=== PATIENT | male | born 1955 | race Hispanic/Latino ===

== ENCOUNTER 2016-08-29 20:02 | Emergency (ER) | payer OTHER, BC ==
[~2016-08-29 20:02] MED LIST: Sodium Chloride 0.9% 1,000 ML BAG ONE
[2016-08-29] MEDS ORDERED: Nitroglycerin 0.4 MG TAB 1 EACH ONE ×2 (20:09→20:21)
[2016-08-29] MEDS ORDERED: Aspirin 325 MG TAB ONE (20:10)
[2016-08-29 20:44] LABS: ALT (SGPT) 17 U/L (0-55); AST (SGOT) 16 U/L (5-34); Albumin 3.7 g/dL (3.5-5.0); Alkaline Phosphatase 146 U/L (40-150); Anion Gap 16 mmol/L (10-20); BUN (Urea Nitrogen) 14 mg/dL (8.4-25.7); Bilirubin, Total 0.5 mg/dL (0.2-1.2); Calc. Creatinine Clearance 0 mL/min (70-130); Calcium 8.9 mg/dL (7.8-10.44); Carbon Dioxide 22 mmol/L (22-29); Chloride 109 mmol/L (98-107); Estimated GFR-MDRD Greater than 90; Globulin 2.6 g/dL (2.4-3.5); Glucose 122 mg/dL (70-105); Potassium 3.9 mmol/L (3.5-5.1); Protein, Total 6.3 g/dL (6.0-8.3); Sodium 143 mmol/L (136-145)
[2016-08-29 20:51] LABS: CKMB 0.6 ng/mL (0-6.6); Troponin I Less than 0.010 ng/mL (< 0.028)
--- NOTE | 2016-08-29 20:58 | RAD ---
SINGLE VIEW OF THE CHEST 08/29/16 INDICATION: Chest pain. IMPRESSION: Mild cardiomegaly. No definite acute cardiopulmonary abnormality demonstrated. COMMENTS: No comparisons available. Pulmonary vasculature is within normal limits. No pleural effusion or pneu mothorax is evident. No acute osseous abnormality is evident. There is partial visualization of an A CDF plate involving the lower cervical spine. POS: [facility]
[2016-08-29 21:25] LABS: #Basophils 0.1 thou/uL (0.0-0.2); #Eosinphils 0.2 thou/uL (0.0-0.7); #Lymphocytes 2.2 thou/uL (1.20-3.40); #Monocytes 0.7 thou/uL (0.11-0.59); #Neutrophils 3.2 thou/uL (1.40-6.50); %Basophils 1.2 % (0.0-1.0); %Eosinophils 3.1 % (0.0-10.0); %Lymphocytes 34.7 % (21.0-51.0); %Monocytes 10.4 % (0.0-10.0); %Neutrophils 50.5 % (42.0-75.0); Hemoglobin 14.4 g/dL (14.0-18.0); Mean Corpuscular HGB CONC 34.8 g/dL (32.0-36.0); Mean Corpuscular Hemoglobin 30.7 pg (27.0-31.0); Mean Corpuscular Volume 88.2 fl (80.0-94.0); Mean Platelet Volume 7.5 fL (7.4-10.4); Platelet Count 219 thou/uL (130-400); RBC Distribution Width 11.9 % (11.5-14.5); Red Blood Cell (RBC) Count 4.69 mill/uL (4.70-6.10); White Blood Cell (WBC) Count 6.3 thou/uL (4.8-10.8)
--- NOTE | 2016-08-29 21:42 | PICIS ---
[facility] EMERGENCY RECORD TRIAGE ([facility] Aug 29, 2016 20:12 MDEB) PATIENT: NAME: Walt Bhatt, AGE: 60, GENDER: male, : Wed1955, TIME OF GREET: Sat Aug 29, 2016 20:02, PREFERRED LANGUAGE: [place], RACE: or , ETHNICITY: or , ECODE BILLING MAP: [facility], SSN: [id number], Zip Code: [address], KG WEIGHT: 86.18, PHONE: , , , PERSON ID: [id number], PCP: UNKNOWN. ([facility] Aug 29, 2016 20:12 MDEB) TRIAGE NOTES: CHEST PRESSURE, SOB. ([facility] Aug 29, 2016 20:12 MDEB) COMPLAINT: SOB. ([facility] Aug 29, 2016 20:12 MDEB) ADMISSION: URGENCY: 3 Urgent, ADMISSION SOURCE: Home, TRANSPORT: Walk-in, BED: TRIAGE. ([facility] Aug 29, 2016 20:12 MDEB) PAIN: Patient complains of pain described as, aching, on a scale 0-10 patient rates pain as 5. ([facility] Aug 29, 2016 20:12 MDEB) PROVIDERS: TRIAGE NURSE: Haydee Lares RN. ([facility] Aug 29, 2016 20:12 MDEB) VITAL SIGNS: BP 126/65, Pulse 66, Resp 20, Temp 98.3, (Tympanic), Pain 5, O2 Sat 97, Time 08/29/2016 20:10. (20:10 MDEB) KNOWN ALLERGIES No Known Allergies (Unconfirmed) No Known Drug Allergies CURRENT MEDICATIONS No recorded medications VITAL SIGNS VITAL SIGNS: BP: 126/65, Pulse: 66, Resp: 20, Temp: 98.3 (Tympanic), Pain: 5, O2 sat: 97, Time: 08/29/2016 20:10. (20:10 MDEB) BP: 119/61, Pulse: 76, Resp: 18, Temp: 98.3 (Tympanic), Pain: 0, O2 sat: 100 on Room Air, Time: 08/29/2016 21:30. (21:30 JDEA) BP: 102/47, Pulse: 62, Resp: 20, Temp: 97.8, Pain: 0, O2 sat: 98% on RA, Time: 08/29/2016 21:50. (21:50 AGAN) NURSING ASSESSMENT: CARDIOVASCULAR (20:46 JDEA) CONSTITUTIONAL: Complex assessment performed, Patient arrives ambulatory, Gait steady, History obtained from patient, Patient appears comfortable, Patient cooperative, Patient alert, Oriented to person, place and time, Skin warm, Skin dry, Skin normal in color, Mucous membranes pink, Mucous membranes moist, Patient complains of shortness of breath, pt in for complaints of shortness of breath with minimal exertion. states that he has not been short of breath like this before. PAIN: aching pain, sternal. CARDIOVASCULAR: Cardiovascular assessment findings include heart rate normal, Heart rhythm normal sinus, Heart sounds normal, S1, S2, Left radial pulse +3(easily palpated, considered normal), Right radial pulse +3(easily palpated, considered normal), Left dorsalis &a-1R&a+25V*p+0X*b4286H*c202B*c15G*c2P*p-0X&a-25V&a+1R Name: Walt Bhatt : 1955 M60 MedRec: [id number] AcctNum: [id number] Prepared: Sat Aug 29, 2016 22:19 by Interface Page 1 of 11 pMD [facility] EMERGENCY RECORD pedis pulse +3(easily palpated, considered normal), Right dorsalis pedis pulse +3(easily palpated, considered normal), No associated diaphoresis, no associated dyspnea. RESPIRATORY/CHEST: Breath sounds clear, Respiratory assessment findings include respiratory effort easy, Respirations regular, Conversing normally, Neck and chest exam findings include trachea midline, Chest expansion equal, Chest movement symmetrical, no signs of distress, no associated cough noted, no associated fever. NOTES: Patient tolerated procedure well. SAFETY: Side rails up, Cart/Stretcher in lowest position, Family at bedside, Call light within reach, Hospital ID band on. NURSING PROCEDURE: DENTAL CERAMIST HELPER (20:12 CJ) PATIENT IDENTIFIER: Patient actively involved in identification process, Patient's identity verified by patient stating name, Patient's identity verified by hospital ID bracelet. DENTAL CERAMIST HELPER: Cardiac monitoring indicated for complaint of chest pain, Patient placed on lunchroom monitor, Heart rate: 66, showing sinus arrhythmia, Patient placed on non-invasive blood pressure monitor, Patient placed on continuous pulse oximetry. FOLLOW-UP: After procedure, alarms set and on, After procedure, patient tolerating monitoring. NOTES: Emotional support needed and given, Patient tolerated procedure well. SAFETY: Side rails up, Cart/Stretcher in lowest position, Family at bedside, Call light within reach, Hospital ID band on. NURSING PROCEDURE: DISCHARGE NOTE (21:50 AGAN) DISCHARGE: Patient discharged to home, ambulating without assistance, family driving, accompanied by //partner, Summary of Care printed/ provided, Patient requested and was provided an electronic copy of Discharge Instructions, Transition record given to patient, Discharge instructions given to patient, Above person(s) verbalized understanding of discharge instructions and follow-up care, Patient discharged by, Dr. Morley, Patient instructed not to drive home, Patient treated and evaluated by physician. BELONGINGS: Belongings remain with patient, Valuables remain with patient. VITAL SIGNS: BP: 102, / 47, Pulse: 62, Resp: 20, Temp: 97.8, Pain: 0, O2 sat: 98%, on: RA. NURSING PROCEDURE: EKG CHART PATIENT IDENTIFIER: Patient actively involved in identification process, Patient's identity verified by patient stating name, Patient's identity verified by hospital ID bracelet. (20:12 MDEB) Patient actively involved in identification process, Patient's identity verified by patient stating name, Patient's identity verified by hospital ID bracelet. (20:39 AGAN) EKG: EKG indicated for complaint of chest pain, 12 lead EKG &a-1R&a+25V*p+0X*x6623G*c202B*c15G*c2P*p-0X&a-25V&a+1R Name: Walt Bhatt : 1955 M60 MedRec: [id number] AcctNum: [id number] Prepared: Sat Aug 29, 2016 22:19 by Interface Page 2 of 11 pMD [facility] EMERGENCY RECORD performed on the left chest. (20:12 MDEB) EKG indicated for complaint of chest pain, 12 lead EKG performed on the left chest, done by MELANY Aguero, second EKG. (20:39 AGAN) FOLLOW-UP: After procedure, EKG for interpretation given to Dr. MORLEY, Notes: ACTUAL TIME 2008. (20:12 CJ) After procedure, EKG for interpretation given to Dr. Dr. Morley. (20:39 AGAN) NOTES: Emotional support needed and given, Patient tolerated procedure well. (20:12 CJ) NURSING PROCEDURE: IV (20:17 JDEA) PATIENT IDENITIFIER: Patient actively involved in identification process, Patient's identity verified by patient stating name, Patient's identity verified by patient stating date, Patient's identity verified by hospital ID bracelet. IV SITE 1: IV therapy indicated for hydration, IV therapy indicated for medication administration, IV established, to the left hand, using an 18 gauge catheter, in one attempt, Saline lock established, Flushed with normal saline (mls): 10mls, Labs drawn at time of placement, labeled in the presence of the patient and sent to lab. FOLLOW-UP SITE 1: After procedure, 2x3 ensure dressing applied, After procedure, no drainage at IV site, After procedure, no swelling at IV site, After procedure, no redness at IV site. NOTES: Patient tolerated procedure well. SAFETY: Side rails up, Cart/Stretcher in lowest position, Family at bedside, Call light within reach, Hospital ID band on. ORDER DETAILS Order Name: B type Natriuretic Peptide, Status: Active, Time: 20:12 08/29/2016, User: CHITO, - Ordered for: MD Morley Lefayne, - Entered by: MD Morley Lefayne - Sat Aug 29, 2016 20:12, - Quantity: 1, Order Name: DENTAL CERAMIST HELPER ED, Status: Done, Time: 20:14 08/29/2016, User: CJ, - Ordered for: MD Morley Lefayne, - Entered by: MD Morley Lefayne - Sat Aug 29, 2016 20:12, - Quantity: 1, Order Name: Cardiac Profile w/CKMB & Troponin - I, Status: Active, Time: 20:12 08/29/2016, User: CHITO, - Ordered for: MD Morley Lefayne, - Entered by: MD Morley Lefayne - Sat Aug 29, 2016 20:12, - Quantity: 1, Order Name: CBC with Differential, Status: Active, Time: 20:12 08/29/2016, User: CHITO, - Ordered for: MD Morley Lefayne, - Entered by: MD Morley Lefayne - Kamran Aug 29, 2016 20:12, - Quantity: 1, &a-1R&a+25V*p+0X*h7640L*c202B*c15G*c2P*p-0X&a-25V&a+1R Name: Walt Bhatt : 1955 M60 MedRec: [id number] AcctNum: [id number] Prepared: Sat Aug 29, 2016 22:19 by Interface Page 3 of 11 D [facility] EMERGENCY RECORD Order Name: Comprehensive Metabolic Panel, Status: Active, Time: 20:12 08/29/2016, User: CHITO, - Ordered for: MD Morley Lefayne, - Entered by: MD Morley Lefayne - Kamran Aug 29, 2016 20:12, - Quantity: 1, Order Name: D-Dimer (Quantitative), Status: Active, Time: 20:12 08/29/2016, User: CHITO, - Ordered for: MD Morley Lefayne, - Entered by: MD Morley Lefayne - Kamran Aug 29, 2016 20:12, - Quantity: 1, Order Name: EKG 12 Lead in Emergency Room, Status: Active, Time: 20:33 08/29/2016, User: CHITO, - Ordered for: MD Morley Lefayne, - Entered by: MD Morley Lefayne - Kamran Aug 29, 2016 20:33, - Quantity: 1, Order Name: EKG 12 Lead in Emergency Room, Status: Active, Time: 20:12 08/29/2016, User: CHITO, - Ordered for: MD Morley Lefayne, - Entered by: MD Morley Lefayne - Kamran Aug 29, 2016 20:12, - Quantity: 1, Order Name: SALINE LOCK, Status: Done, Time: 20:14 08/29/2016, User: CJ, - Ordered for: MD Morley Lefayne, - Entered by: MD Morley Lefayne - Sat Aug 29, 2016 20:12, - Quantity: 1, Order Name: XR Chest 1 View Portable, Status: Active, Time: 20:12 08/29/2016, User: [facility], - Ordered for: MD Morley Lefayne, - Entered by: MD Morley Lefayne - Kamran Aug 29, 2016 20:12, - Quantity: 1. MEDICATION ADMINISTRATION SUMMARY Drug Name: nitroglycerin sublingual, Dose Ordered: 0.4 mg, Route: Sublingual, Status: Given, Time: 20:30 08/29/2016, Drug Name: nitroglycerin sublingual, Dose Ordered: 0.4 mg, Route: Sublingual, Status: Given, Time: 20:25 08/29/2016, Drug Name: Normal Saline, Dose Ordered: 150 mL/hr, Route: IV Fluid Infusion, Status: Given, Time: 20:15 08/29/2016, Drug Name: nitroglycerin sublingual, Dose Ordered: 0.4 mg, Route: Sublingual, Status: Given, Time: 20:12 08/29/2016, Drug Name: aspirin oral, Dose Ordered: 324 mg, Route: Oral, Status: Given, Time: 20:12 08/29/2016, Detailed record available in Medication Service section. MEDICATION SERVICE aspirin oral: Order: aspirin oral (aspirin) - Dose: 324 mg : Oral Ordered by: Danuta Molrey MD Entered by: Danuta Morley MD Sat Aug 29, 2016 20:13 , &a-1R&a+25V*p+0X*s2930O*c202B*c15G*c2P*p-0X&a-25V&a+1R Name: Walt Bhatt : 1955 M60 MedRec: [id number] AcctNum: [id number] Prepared: Sat Aug 29, 2016 22:19 by Interface Page 4 of 11 D [facility] EMERGENCY RECORD Acknowledged by: Baldemar Farias RN Sat Aug 29, 2016 20:15 Documented as given by: Baldemar Farias RN Sat Aug 29, 2016 20:12 Patient, Medication, Dose, Route and Time verified prior to administration. Amount given: 325 mg, Site: Medication administered P.O., Correct patient, time, route, dose and medication confirmed prior to administration, Patient advised of actions and side-effects prior to administration, Allergies confirmed and medications reviewed prior to administration, Patient tolerated procedure well, Patient in position of comfort, Side rails up, Cart in lowest position, Family at bedside. : Follow Up : Response assessment performed, No signs or symptoms of allergic reaction noted. (20:30 AGAN) nitroglycerin sublingual: Order: nitroglycerin sublingual (nitroglycerin) - Dose: 0.4 mg : Sublingual Ordered by: Danuta Morley MD Entered by: Danuta Morley MD Sat Aug 29, 2016 20:13 , Acknowledged by: Baldemar Farias RN Sat Aug 29, 2016 20:15 Documented as given by: Baldemar Farias RN Sat Aug 29, 2016 20:12 Patient, Medication, Dose, Route and Time verified prior to administration. Amount given: 0.4 mg, Site: Medication administered P.O., Correct patient, time, route, dose and medication confirmed prior to administration, Patient advised of actions and side-effects prior to administration, Allergies confirmed and medications reviewed prior to administration, Patient tolerated procedure well, Patient in position of comfort, Side rails up, Cart in lowest position, Family at bedside. : Follow Up : Response assessment performed, No signs or symptoms of allergic reaction noted, No change in symptoms, pain same as prior to dose 5/5 scale. MD informed. (20:25 AGAN) nitroglycerin sublingual: Order: nitroglycerin sublingual (nitroglycerin) - Dose: 0.4 mg : Sublingual Ordered by: Danuta Morley MD Entered by: Danuta Morley MD Sat Aug 29, 2016 20:24 , Acknowledged by: Baldemar Farias RN Sat Aug 29, 2016 20:31 Documented as given by: Baldemar Farias RN Sat Aug 29, 2016 20:25 Patient, Medication, Dose, Route and Time verified prior to administration. Amount given: 0.4 mg, Site: Medication administered S.L., Correct patient, time, route, dose and medication confirmed prior to administration, Patient advised of actions and side-effects prior to administration, Allergies confirmed and medications reviewed prior to administration, Patient tolerated procedure well, Patient in position of comfort, Side rails up, Cart in lowest position, Family at bedside. : Follow Up : Response assessment performed, No signs or symptoms of allergic reaction noted, Decreased pain, Pain down to 3/5 scale. VSS slight headache. MD informed. will give the 3rd dose. (20:30 AGAN) &a-1R&a+25V*p+0X*k7999K*c202B*c15G*c2P*p-0X&a-25V&a+1R Name: Walt Bhatt : 1955 M60 MedRec: [id number] AcctNum: [id number] Prepared: Sat Aug 29, 2016 22:19 by Interface Page 5 of 11 pMD [facility] EMERGENCY RECORD nitroglycerin sublingual: Order: nitroglycerin sublingual (nitroglycerin) - Dose: 0.4 mg : Sublingual Schedule: Now Ordered by: Danuta Morley MD Entered by: Baldemar Farias RN Sat Aug 29, 2016 20:44 , Acknowledged by: MELANY Orourke Aug 29, 2016 20:44 Documented as given by: Baldemar Farias RN Sat Aug 29, 2016 20:30 Patient, Medication, Dose, Route and Time verified prior to administration. Amount given: 0.4 mg, Site: Medication administered S.L., Correct patient, time, route, dose and medication confirmed prior to administration, Patient advised of actions and side-effects prior to administration, Allergies confirmed and medications reviewed prior to administration, Patient tolerated procedure well, Patient in position of comfort, Side rails up, Cart in lowest position, Family at bedside. : Follow Up : Response assessment performed, No signs or symptoms of allergic reaction noted, Decreased pain, Decreased symptoms, chest pressure almost gone. Headache is bearable at this time. MD notified. (20:35 AGAN) Normal Saline: Order: Normal Saline (0.9 % sodium chloride) - Dose: 150 mL/hr : IV Fluid Infusion Ordered by: Danuta Morley MD Entered by: Danuta Morley MD Sat Aug 29, 2016 20:13 , Acknowledged by: Baldemar Farias RN Sat Aug 29, 2016 20:15 Documented as given by: Baldemar Farias RN [facility] Aug 29, 2016 20:15 Patient, Medication, Dose, Route and Time verified prior to administration. Amount given: 1000 ml, IV SITE #1 IV fluids established for hydration, IV SITE #1 into left hand, IV SITE #1 1st bag hung, amount 1 Liter hung, IV SITE #1 Rate of infusion (non-bolus) Infusing at 150 ml/hr, via primary tubing, via pump tubing, IV SITE #1 on IV pump, Catheter placement confirmed via flush prior to administration, IV site without signs or symptoms of infiltration during medication administration, No swelling during administration, No drainage during administration, IV flushed after administration, Correct patient, time, route, dose and medication confirmed prior to administration, Patient advised of actions and side-effects prior to administration, Allergies confirmed and medications reviewed prior to administration, Patient tolerated procedure well, Patient in position of comfort, Side rails up, Cart in lowest position, Family at bedside. : Follow Up : Response assessment performed, No signs or symptoms of allergic reaction noted, Decreased symptoms, _IV SITE #1:_, IV fluid infusion discontinued, on Sat Aug 29, 2016 21:50, Total fluid hydration time IV site 1 1 hour, 35 minutes, ., Total amount infused: 225 ml. (21:50 AGAN) HPI CHEST PAIN CHIEF COMPLAINT: Patient presents for evaluation of chest pain, ongoing. (20:16 LHOD) &a-1R&a+25V*p+0X*d0853C*c202B*c15G*c2P*p-0X&a-25V&a+1R Name: Walt Bhatt : 1955 M60 MedRec: [id number] AcctNum: [id number] Prepared: Sat Aug 29, 2016 22:19 by Interface Page 6 of 11 pMD [facility] EMERGENCY RECORD HISTORIAN: History provided by patient, History provided by patient's spouse. (20:16 LHOD) LOCATION: Symptoms are localized, most severe in substernal area, MID CHEST. (20:23 LHOD) QUALITY: Pain is dull in nature, described as pressure-like. (20:23 LHOD) SEVERITY: Maximum severity of pain rated as 8/10, Current severity of pain rated as 5/10. (20:24 LHOD) TIME COURSE: APPROX. 1900 PT REPORTS HE WAS WALKING OUTSIDE WHEN HE SUDDENLY FELT SOB AND DEVELOPED MID STERNAL CHEST PRESSURE. NO PREVIOUS PULMONARY PROBLEMS. HAD HEART CATH APPROX. 10 YEARS AGO WHICH WAS NORMAL. PT IS HYPERTHYROID AND BACK ON METHIMAZOLE THE PAST 2 WEEKS. (20:16 LHOD) ASSOCIATED WITH: No associated chills, No associated cough, No associated diaphoresis, No associated fever, No associated nausea, No associated palpitations, Associated with shortness of breath, No associated trauma, No associated upper respiratory infection, No associated vomiting. (20:23 LHOD) EXACERBATED BY: Patient's condition exacerbated by nothing. (21:35 LHOD) RELIEVED BY: Patient's condition relieved by nothing because patient has not tried anything for relief. (21:35 LHOD) ROS (20:18 LHOD) CONSTITUTIONAL: Historian denies fever. CARDIOVASCULAR: Historian reports chest pain, reports dyspnea on exertion. RESPIRATORY: Historian denies cough, reports shortness of breath. GI: Historian denies abdominal pain, denies nausea, denies vomiting. MUSCULOSKELETAL: Negative musculoskeletal review of systems. SKIN: Historian denies rash. NEUROLOGIC: Historian denies focal weakness, denies headache. HEMO/LYMPHATIC: Historian denies easy bruising. ALLERGIC/IMMUNOLOGIC: Historian denies hives. NOTES: All systems reviewed, negative except as described above. PAST MEDICAL HISTORY MALE SURGICAL HISTORY: CERVICAL FUSION HX--2 YEARS AGO. (Sat Aug 29, 2016 20:12 MDEB) SOCIAL HISTORY: Patient drinks socially, once a month, Patient denies drug use, Patient has no smoking history. (Sat Aug 29, 2016 20:12 MDEB) NOTES: Nursing records reviewed, HYPERTHYROID HX OF SMOKING A TEENAGER. (20:22 LHOD) PHYSICAL EXAM (20:21 LHOD) CONSTITUTIONAL: Vital Signs Reviewed, Patient afebrile, Pulse normal, Blood pressure normal bilaterally, Respiratory rate normal, &a-1R&a+25V*p+0X*w6817D*c202B*c15G*c2P*p-0X&a-25V&a+1R Name: Walt Bhatt : 1955 M60 MedRec: [id number] AcctNum: [id number] Prepared: Sat Aug 29, 2016 22:19 by Interface Page 7 of 11 pMD [facility] EMERGENCY RECORD Patient appears, in moderate pain distress, Patient alert and oriented to person, place and time. NECK: Neck exam included findings of normal range of motion, Trachea midline. RESPIRATORY CHEST: Respiratory exam included findings of no respiratory distress, Breath sounds clear. CARDIOVASCULAR: Heart rate regular rate and rhythm, Heart sounds normal. ABDOMEN MALE: Abdominal exam included findings of abdomen nontender. BACK: Back exam normal. UPPER EXTREMITY: Upper extremity exam normal. LOWER EXTREMITY: Lower extremity exam normal. NEURO: Neuro exam findings include patient oriented to person, place and time, Speech normal, no focal motor deficits, no focal sensory deficits. SKIN: no rash. LAB INTERPRETATION (20:53 LHOD) INTERPRETATION: I reviewed the lab results, CBC normal, Chemistry abnormal, Glucose elevated, Cardiac enzymes normal, D-dimer negative. EVENTS TRANSFER: Triage to Emergency Triage. (Sat Aug 29, 2016 20:12 MDEB) Emergency Triage to Main ED -05. (20:12 MDEB) Removed from Emergency Main ED -05. (22:03 AGAN) RADIOLOGYINTERPRETATION (20:33 LHOD) CHEST: Films of the chest show, interstitial infiltrate, Other findings: NO INFILTRATE. EKG INTERPRETATION (20:21 LHOD) 12 LEAD EKG INTERPRETATION: 12 lead EKG interpreted by Emergency Department Physician at time of study, 12 lead EKG shows normal sinus rhythm, Rate (beats per minute): 69, with no ectopics, T waves normal, [place] normal. DOCTOR NOTES (20:59 LHOD) TEXT: 2100---AWAITING CBC. PT DENIES CHEST PRESSURE OR SOB NOW. REPEAT EKG UNCHANGED. 2129--PT FEELING WELL. 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 UNDERSTANDS TO CALL 911 OR RETURN IF WORSE. PROBLEM LIST No recorded problems DIAGNOSIS (21:31 LHOD) &a-1R&a+25V*p+0X*j5313L*c202B*c15G*c2P*p-0X&a-25V&a+1R Name: Walt Bhatt : 1955 M60 MedRec: [id number] AcctNum: [id number] Prepared: Sat Aug 29, 2016 22:19 by Interface Page 8 of 11 pMD [facility] EMERGENCY RECORD FINAL: PRIMARY: CHEST PAIN---UNCERTAIN ETIOLOGY. DISPOSITION PATIENT: Disposition Type: Discharge, Disposition: *Discharge Home, Condition: Good. (21:31 LHOD) Disposition Transport: Ambulance, Patient left the department. (22:03 AGAN) INSTRUCTION (21:32 LHOD) DISCHARGE: CHEST PAIN ATYPICAL. FOLLOWUP: Follow up with Primary Care Physician in 5 days. SPECIAL: FOR ANY FURTHER CHEST PRESSURE OR SHORTNESS OF BREATH, CALL 911 OR RETURN IMMEDIATELY. *RETURN IF WORSE Follow-up with your PCP. PRESCRIPTION No recorded prescriptions IMAGING *DISCHARGE INSTRUCTIONS RECEIPT: Image captured from scanner. (21:51 AGAN) *SUPPLY CHARGE SHEET: Image captured from scanner. (21:51 AGAN) VITAL SIGNS: Image captured from scanner. (22:04 AGAN) ADMIN (21:37 LHOD) DIGITAL SIGNATURE: MD Milli, Danuta. RESULTS RADIOLOGY: XR Chest 1 View Portable Observe DT: Sat Aug 29, 2016 20:14, CXRP SINGLE VIEW OF THE CHEST 08/29/16 INDICATION: Chest pain. IMPRESSION: Mild cardiomegaly. No definite acute cardiopulmonary abnormality demonstrated. COMMENTS: No comparisons available. Pulmonary vasculature is within normal limits. No pleural effusion or pneu mothorax is evident. No acute osseous abnormality is evident. There is partial visualization of an A CDF plate involving the lower cervical spine. POS: [facility] &a-1R&a+25V*p+0X*a0707M*c202B*c15G*c2P*p-0X&a-25V&a+1R Name: Walt Bhatt : 1955 M60 MedRec: [id number] AcctNum: [id number] Prepared: Sat Aug 29, 2016 22:19 by Interface Page 9 of 11 pMD [facility] EMERGENCY RECORD . (21:10 LHOD) LABORATORY: D-Dimer (Quantitative) Collection DT: Sat Aug 29, 2016 20:19, D-Dimer Test 0.27 *mcg/mL, Range (0.27-0.43), * Reference Range Units: mcg/mL of fibrinogen equivalent, units(FEU) Based upon a retrospective study of [facility] patients in November 2005, a result of Less than 0.44 mcg/mL FEU is, predictive of the absence of a DVT or PE. . (20:47 LHOD) Comprehensive Metabolic Panel Collection DT: [facility] Aug 29, 2016 20:19, Sodium 143 mmol/L, Range (136-145), Potassium 3.9 mmol/L, Range (3.5-5.1), *Chloride 109 - H mmol/L, Range (98-107), Carbon Dioxide 22 mmol/L, Range (22-29), Anion Gap 16 mmol/L, Range (10-20), BUN (Urea Nitrogen) 14 mg/dL, Range (8.4-25.7), *Creatinine 0.67 - L mg/dL, Range (0.7-1.3), Estimated GFR-MDRD Greater than 90 , Reference Range for Estimated GFR: Greater than 90, mL/min/1.73 m2 NOTE: The MDRD equation has not been validated for use, with the elderly (over 70 years of age), women, patients with, serious comorbid condition or persons with extremes of body size, muscle, mass, or nutritional status. , *Glucose 122 - H mg/dL, Range (70-105), Calcium 8.9 mg/dL, Range (7.8-10.44), Bilirubin, Total 0.5 mg/dL, Range (0.2-1.2), Protein, Total 6.3 g/dL, Range (6.0-8.3), NOTE: Plasma values are generally 0.3 to 0.5 g/dL higher than serum values, due to the presence of fibrinogen. , Albumin 3.7 g/dL, Range (3.5-5.0), Globulin 2.6 g/dL, Range (2.4-3.5), Alb/Glob Ratio 1.4 g/dL, Range (1.2-2.2), Alkaline Phosphatase 146 U/L, Range (40-150), AST (SGOT) 16 U/L, Range (5-34), ALT (SGPT) 17 U/L, Range (0-55). (20:52 LHOD) B type Natriuretic Peptide Collection DT: Sat Aug 29, 2016 20:19, B type Natriuretic Peptide 38.2 pg/mL, Range (0-100). (20:54 LHOD) Cardiac Profile w/CKMB & TropI Collection DT: Sat Aug 29, 2016 20:19, CKMB 0.6 ng/mL, Range (0-6.6), Troponin I Less than 0.010 ng/mL, Range (< 0.028), Reference Range , 0.00 - 0.028 ng/mL Negative 0.029 - 0.29 ng/mL , Indeterminate Greater or Equal to 0.3 ng/mL Strongly suggests NC &a-1R&a+25V*p+0X*[id number]*c202B*c15G*c2P*p-0X&a-25V&a+1R Name: Walt Bhatt : 1955 M60 MedRec: [id number] AcctNum: [id number] Prepared: Sat Aug 29, 2016 22:19 by Interface Page 10 of 11 pMD [facility] EMERGENCY RECORD , . (20:54 LHOD) CBC with Differential Collection DT: Sat Aug 29, 2016 20:19, White Blood Cell (WBC) Count 6.3 thou/uL, Range (4.8-10.8), *Red Blood Cell (RBC) Count 4.69 - L mill/uL, Range (4.70-6.10), Hemoglobin 14.4 g/dL, Range (14.0-18.0), *Hematocrit 41.4 - L %, Range (42.0-52.0), Mean Corpuscular Volume 88.2 fl, Range (80.0-94.0), Mean Corpuscular Hemoglobin 30.7 pg, Range (27.0-31.0), Mean Corpuscular HGB CONC 34.8 g/dL, Range (32.0-36.0), RBC Distribution Width 11.9 %, Range (11.5-14.5), Platelet Count 219 thou/uL, Range (130-400), Mean Platelet Volume 7.5 fL, Range (7.4-10.4), %Neutrophils 50.5 %, Range (42.0-75.0), %Lymphocytes 34.7 %, Range (21.0-51.0), *%Monocytes 10.4 - H %, Range (0.0-10.0), %Eosinophils 3.1 %, Range (0.0-10.0), *%Basophils 1.2 - H %, Range (0.0-1.0), #Neutrophils 3.2 thou/uL, Range (1.40-6.50), #Lymphocytes 2.2 thou/uL, Range (1.20-3.40), *#Monocytes 0.7 - H thou/uL, Range (0.11-0.59), #Eosinphils 0.2 thou/uL, Range (0.0-0.7), #Basophils 0.1 thou/uL, Range (0.0-0.2). (21:30 LHOD) Martinez: CELI=MELANY Farias, Baldemar MADDOX=MELANY Spann, Claudia LHOD=MD Milli, Danuta CORONA=MELANY Lares, Haydee &a-1R&a+25V*p+0X*[id number]*c202B*c15G*c2P*p-0X&a-25V&a+1R Name: Walt Bhatt Cuate : 1955 M60 MedRec: [id number] AcctNum: [id number] Prepared: Kamran Aug 29, 2016 22:19 by Interface Page 11 of 11 pMD MTDD
--- NOTE | 2016-08-29 21:48 | ERRECORD ---
[facility] EMERGENCY RECORD HPI CHEST PAIN CHIEF COMPLAINT: Patient presents for evaluation of chest pain, ongoing. (20:16 LHOD) HISTORIAN: History provided by patient, History provided by patient's spouse. (20:16 LHOD) LOCATION: Symptoms are localized, most severe in substernal area, MID CHEST. (20:23 LHOD) QUALITY: Pain is dull in nature, described as pressure-like. (20:23 LHOD) SEVERITY: Maximum severity of pain rated as 8/10, Current severity of pain rated as 5/10. (20:24 LHOD) TIME COURSE: APPROX. 1900 PT REPORTS HE WAS WALKING OUTSIDE WHEN HE SUDDENLY FELT SOB AND DEVELOPED MID STERNAL CHEST PRESSURE. NO PREVIOUS PULMONARY PROBLEMS. HAD HEART CATH APPROX. 10 YEARS AGO WHICH WAS NORMAL. PT IS HYPERTHYROID AND BACK ON METHIMAZOLE THE PAST 2 WEEKS. (20:16 LHOD) ASSOCIATED WITH: No associated chills, No associated cough, No associated diaphoresis, No associated fever, No associated nausea, No associated palpitations, Associated with shortness of breath, No associated trauma, No associated upper respiratory infection, No associated vomiting. (20:23 LHOD) EXACERBATED BY: Patient's condition exacerbated by nothing. (21:35 LHOD) RELIEVED BY: Patient's condition relieved by nothing because patient has not tried anything for relief. (21:35 LHOD) ROS (20:18 LHOD) CONSTITUTIONAL: Historian denies fever. CARDIOVASCULAR: Historian reports chest pain, reports dyspnea on exertion. RESPIRATORY: Historian denies cough, reports shortness of breath. GI: Historian denies abdominal pain, denies nausea, denies vomiting. MUSCULOSKELETAL: Negative musculoskeletal review of systems. SKIN: Historian denies rash. NEUROLOGIC: Historian denies focal weakness, denies headache. HEMO/LYMPHATIC: Historian denies easy bruising. ALLERGIC/IMMUNOLOGIC: Historian denies hives. NOTES: All systems reviewed, negative except as described above. PAST MEDICAL HISTORY MALE SURGICAL HISTORY: CERVICAL FUSION HX--2 YEARS AGO. (Sat Aug 29, 2016 20:12 MDEB) SOCIAL HISTORY: Patient drinks socially, once a month, Patient denies drug use, Patient has no smoking history. (Sat Aug 29, 2016 20:12 MDEB) NOTES: Nursing records reviewed, HYPERTHYROID HX OF SMOKING A TEENAGER. (20:22 LHOD) &a-1R&a+25V*p+0X*i9917U*c202B*c15G*c2P*p-0X&a-25V&a+1R Name: Walt Bhatt : 1955 M60 MedRec: [id number] AcctNum: [id number] Prepared: Sat Aug 29, 2016 22:12 by Interface Page 1 of 3 pMD [facility] EMERGENCY RECORD KNOWN ALLERGIES No Known Allergies (Unconfirmed) No Known Drug Allergies CURRENT MEDICATIONS No recorded medications VITAL SIGNS VITAL SIGNS: BP: 126/65, Pulse: 66, Resp: 20, Temp: 98.3 (Tympanic), Pain: 5, O2 sat: 97, Time: 08/29/2016 20:10. (20:10 MDEB) BP: 119/61, Pulse: 76, Resp: 18, Temp: 98.3 (Tympanic), Pain: 0, O2 sat: 100 on Room Air, Time: 08/29/2016 21:30. (21:30 JDEA) BP: 102/47, Pulse: 62, Resp: 20, Temp: 97.8, Pain: 0, O2 sat: 98% on RA, Time: 08/29/2016 21:50. (21:50 AGAN) PHYSICAL EXAM (20:21 LHOD) CONSTITUTIONAL: Vital Signs Reviewed, Patient afebrile, Pulse normal, Blood pressure normal bilaterally, Respiratory rate normal, Patient appears, in moderate pain distress, Patient alert and oriented to person, place and time. NECK: Neck exam included findings of normal range of motion, Trachea midline. RESPIRATORY CHEST: Respiratory exam included findings of no respiratory distress, Breath sounds clear. CARDIOVASCULAR: Heart rate regular rate and rhythm, Heart sounds normal. ABDOMEN MALE: Abdominal exam included findings of abdomen nontender. BACK: Back exam normal. UPPER EXTREMITY: Upper extremity exam normal. LOWER EXTREMITY: Lower extremity exam normal. NEURO: Neuro exam findings include patient oriented to person, place and time, Speech normal, no focal motor deficits, no focal sensory deficits. SKIN: no rash. EKG INTERPRETATION (20:21 LHOD) 12 LEAD EKG INTERPRETATION: 12 lead EKG interpreted by Emergency Department Physician at time of study, 12 lead EKG shows normal sinus rhythm, Rate (beats per minute): 69, with no ectopics, T waves normal, Kincaid normal. RADIOLOGYINTERPRETATION (20:33 LHOD) CHEST: Films of the chest show, interstitial infiltrate, Other findings: NO INFILTRATE. MEDICATION ADMINISTRATION SUMMARY Drug Name: nitroglycerin sublingual, Dose Ordered: 0.4 mg, Route: Sublingual, Status: Given, Time: 20:30 08/29/2016, &a-1R&a+25V*p+0X*[id number]*c202B*c15G*c2P*p-0X&a-25V&a+1R Name: Walt Bhatt : 1955 M60 MedRec: [id number] AcctNum: [id number] Prepared: Sat Aug 29, 2016 22:12 by Interface Page 2 of 3 pMD [facility] EMERGENCY RECORD Drug Name: nitroglycerin sublingual, Dose Ordered: 0.4 mg, Route: Sublingual, Status: Given, Time: 20:25 08/29/2016, Drug Name: Normal Saline, Dose Ordered: 150 mL/hr, Route: IV Fluid Infusion, Status: Given, Time: 20:15 08/29/2016, Drug Name: nitroglycerin sublingual, Dose Ordered: 0.4 mg, Route: Sublingual, Status: Given, Time: 20:12 08/29/2016, Drug Name: aspirin oral, Dose Ordered: 324 mg, Route: Oral, Status: Given, Time: 20:12 08/29/2016, Detailed record available in Medication Service section. DOCTOR NOTES (20:59 LHOD) TEXT: 2100---AWAITING CBC. PT DENIES CHEST PRESSURE OR SOB NOW. REPEAT EKG UNCHANGED. 2129--PT FEELING WELL. 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 UNDERSTANDS TO CALL 911 OR RETURN IF WORSE. PROBLEM LIST No recorded problems DIAGNOSIS (21:31 LHOD) FINAL: PRIMARY: CHEST PAIN---UNCERTAIN ETIOLOGY. PRESCRIPTION No recorded prescriptions DISPOSITION PATIENT: Disposition Type: Discharge, Disposition: *Discharge Home, Condition: Good. (21:31 LHOD) Disposition Transport: Ambulance, Patient left the department. (22:03 CELI) Martinez: CELI=MELANY Farias, Baldemar MADDOX=MELANY Spann, Claudia LHOD=MD Milli, Danuta PORTILLOEB=MELANY Lares, Haydee &a-1R&a+25V*p+0X*[id number]*c202B*c15G*c2P*p-0X&a-25V&a+1R Name: Walt Bhatt : 1955 M60 MedRec: [id number] AcctNum: [id number] Prepared: Kamran Aug 29, 2016 22:12 by Interface Page 3 of 3 pMD MTDD
== END 2016-08-29 21:50 | disposition home or self-care (01) ==
LOC: MADERS 20:02
DX: R07.2 Precordial pain (principal)
CPT/HCPCS: 36415; 71010; 80053; 82553; 83880; 84484; 85025; 85379; 93005; 96360; 96361; J7050

== ENCOUNTER 2018-07-30 20:57 | Emergency (ER) | payer BC, OTHER ==
[~2018-07-30 20:57] MED LIST changes: +Iopamidol 370 76% 100 ML VIAL ONE; -Sodium Chloride 0.9% 1,000 ML BAG ONE
[2018-07-30 21:42] LABS: #Basophils 0.1 thou/uL (0.0-0.2); #Eosinphils 0.1 thou/uL (0.0-0.7); #Monocytes 0.8 thou/uL (0.11-0.59); #Neutrophils 4.6 thou/uL (1.40-6.50); %Basophils 0.8 % (0.0-1.0); %Eosinophils 1.4 % (0.0-10.0); %Lymphocytes 26.7 % (21.0-51.0); %Monocytes 10.1 % (0.0-10.0); %Neutrophils 60.9 % (42.0-75.0); Hemoglobin 14.9 g/dL (14.0-18.0); Mean Corpuscular HGB CONC 33.1 g/dL (32.0-36.0); Mean Corpuscular Hemoglobin 30.4 pg (27.0-31.0); Mean Corpuscular Volume 91.9 fL (78.0-98.0); Mean Platelet Volume 7.3 fL (7.4-10.4); Platelet Count 237 thou/uL (130-400); RBC Distribution Width 12.9 % (11.5-14.5); White Blood Cell (WBC) Count 7.6 thou/uL (4.8-10.8)
[2018-07-30 21:48] LABS: Bilirubin Negative (Negative); Blood, Urine Negative (Negative); Clarity Clear (Clear); Glucose, Urine (Dipstick) Negative (Negative); Leukocyte Negative (Negative); Nitrite Negative (Negative); Protein, Urine (Dipstick) Negative (Neg-Trace); Urobilinogen 0.2 mg/dL (0.2-1.0)
[2018-07-30 21:58] LABS: ALT (SGPT) 34 U/L (8-55); AST (SGOT) 26 U/L (5-34); Albumin 4.4 g/dL (3.4-4.8); Alkaline Phosphatase 83 U/L (40-150); Anion Gap 14 mmol/L (10-20); BUN (Urea Nitrogen) 11 mg/dL (8.4-25.7); Bilirubin, Total 0.5 mg/dL (0.2-1.2); Calc. Creatinine Clearance 0 mL/min (70-130); Calcium 9.6 mg/dL (7.8-10.44); Carbon Dioxide 25 mmol/L (23-31); Chloride 104 mmol/L (98-107); Estimated GFR-MDRD 86; Globulin 3.1 g/dL (2.4-3.5); Glucose 100 mg/dL (80-115); Lipase 26 U/L (8-78); Protein, Total 7.5 g/dL (5.8-8.1); Sodium 139 mmol/L (136-145)
[2018-07-30] MEDS ORDERED: metroNIDAZOLE 250 MG TAB ONE (23:01)
[2018-07-30] MEDS ORDERED: Sulfameth/Trimethoprim DS 800-160mg TAB ONE (23:01)
--- NOTE | 2018-07-30 23:55 | CT ---
ABDOMEN CT WITH CONTRAST PELVIC CT WITH CONTRAST 07/30/18 COMPARISON: 07/22/17 HISTORY: Right lower quadrant pain. FINDINGS: ABDOMEN CT: Chronic changes in the lung bases. Heart size is within normal limits. No pericardial effusion. The descending thoracic aorta and abdominal aorta have a normal caliber. No periaortic fat stranding. Portal vein is patent. Unremarkable gallbladder. Hypoattenuation of the liver due to hepatic steatosis. Spleen, pancreas and adrenal glands have appro priate enhancement. No gastrohepatic, retrocrural, or periportal lymphadenopathy. Symmetric enhancement of the kidneys. Bilaterally, no obstructive uropathy. Limited evaluation of the alimentary canal due to lack of oral contrast. No evidence of bowel obstruc tion. Ileocecal junction is normal. Normal caliber appendix. Nondistended colon. Occasional diverticu lum. There is diverticulosis with adjacent pericolonic fat stranding involving the proximal sigmoid c olon. No evidence of abscess or extraluminal air. PELVIC CT: Unremarkable urinary bladder. No pelvic mass, lymphadenopathy, free air or free fluid. There are surgical clips in the right hemipelvis. No lytic or blastic lesions in the osseous structures. IMPRESSION: Diverticulosis with associated diverticulitis involving the proximal sigmoid colon. POS: [facility]
== END 2018-07-30 23:10 | disposition home or self-care (01) ==
LOC: MADERS 20:57
DX: K57.32 Diverticulitis of large intestine without perforation or abscess without bleeding (principal); Z79.899 Other long term (current) drug therapy
CPT/HCPCS: 74177; 80053; 81001; 82150; 83690; 85025

== ENCOUNTER 2018-12-24 15:56 | Emergency (ER) | payer BC, OTHER ==
[2018-12-24] MEDS ORDERED: Ketorolac Tromethamine 30 MG/ML VIAL ONE (16:21)
[2018-12-24] MEDS ORDERED: Diazepam 5 MG TAB ONE (16:53)
== END 2018-12-24 17:00 | disposition home or self-care (01) ==
LOC: MADERS 15:56
DX: S39.92XA Unspecified injury of lower back, initial encounter (principal)
CPT/HCPCS: 96372; J1885

== ENCOUNTER 2019-07-09 19:34 | Emergency (ER) | payer BC, OTHER ==
[~2019-07-09 19:34] MED LIST changes: +Sodium Chloride 0.9% 1,000 ML BAG ONE
[2019-07-09 19:54] LABS: Bilirubin Negative (Negative); Blood, Urine Negative (Negative); Clarity Clear (Clear); Glucose, Urine (Dipstick) Negative (Negative); Leukocyte Negative (Negative); Nitrite Negative (Negative); Protein, Urine (Dipstick) Negative (Neg-Trace)
[2019-07-09 20:17] LABS: #Basophils 0.1 thou/uL (0.0-0.2); #Eosinphils 0.2 thou/uL (0.0-0.7); #Lymphocytes 1.9 thou/uL (1.20-3.40); #Monocytes 0.5 thou/uL (0.11-0.59); #Neutrophils 3.5 thou/uL (1.40-6.50); %Basophils 1.1 % (0.0-1.0); %Eosinophils 2.7 % (0.0-10.0); %Monocytes 8.4 % (0.0-10.0); %Neutrophils 56.8 % (42.0-75.0); Hemoglobin 13.8 g/dL (14.0-18.0); Mean Corpuscular HGB CONC 31.5 g/dL (32.0-36.0); Platelet Count 260 thou/uL (130-400); RBC Distribution Width 12.5 % (11.5-14.5); Red Blood Cell (RBC) Count 4.76 mill/uL (4.70-6.10); White Blood Cell (WBC) Count 6.1 thou/uL (4.8-10.8)
[2019-07-09 20:36] LABS: ALT (SGPT) 26 U/L (8-55); AST (SGOT) 19 U/L (5-34); Albumin 4.3 g/dL (3.4-4.8); Alkaline Phosphatase 90 U/L (40-110); Anion Gap 16 mmol/L (10-20); BUN (Urea Nitrogen) 14 mg/dL (8.4-25.7); Bilirubin, Total 0.4 mg/dL (0.2-1.2); Calc. Creatinine Clearance 0 mL/min (70-130); Calcium 9.4 mg/dL (7.8-10.44); Carbon Dioxide 23 mmol/L (23-31); Chloride 106 mmol/L (98-107); Estimated GFR-MDRD 76; Globulin 2.8 g/dL (2.4-3.5); Glucose 118 mg/dL (80-115); Lipase 41 U/L (8-78); Potassium 3.9 mmol/L (3.5-5.1); Protein, Total 7.1 g/dL (5.8-8.1); Sodium 141 mmol/L (136-145)
--- NOTE | 2019-07-09 21:15 | CT ---
CT abdomen and pelvis with IV contrast HISTORY: Abdominal pain. COMPARISON: 05/30/2018. FINDINGS: Lung bases are clear. The liver, spleen, kidneys, adrenal glands, and pancreas are unremark able. Nonspecific lymph nodes within the retroperitoneum. Scattered diverticula arise from the colon without adjacent inflammation. Prior hernia repair at the right internal inguinal ring. Prominent degenerative changes of the lumbar spine with central canal stenoses most pronounced at the L2-3 and L4-5 levels. IMPRESSION: Diverticulosis. No evidence of diverticulitis. No acute abnormalities are demonstrated.
[2019-07-09] MEDS ORDERED: Morphine 10 MG/ML VIAL ONE (21:21)
[2019-07-09] MEDS ORDERED: Ondansetron PF 4 MG/2 ML Vial ONE (21:24)
== END 2019-07-09 22:41 | disposition short-term general hospital (02) ==
LOC: MADERS 19:34
DX: N50.811 Right testicular pain (principal); R10.31 Right lower quadrant pain; E03.9 Hypothyroidism, unspecified; N40.0 Benign prostatic hyperplasia without lower urinary tract symptoms
CPT/HCPCS: 74177; 80053; 81003; 82150; 83690; 85025; 86140; 87086; 96374; 96375; J2270; J2405; J7050; Q9967